=== PATIENT | male | born 1965 | race Hispanic/Latino ===

== ENCOUNTER 2024-01-10 05:45 | Day surgery (SDC) | payer MEDICARE ==
[2024-01-08 10:23] VITALS: BP 147/93; PULSE 83; RESP 18; TEMP 99.1
[2024-01-08 10:25] LABS: BASOPHILS # (AUTO) 0.02 K/uL (0.00-0.20); BASOPHILS % (AUTO) 0.2 % (0.0-5.0); EOSINOPHILS # (AUTO) 0.33 K/uL (0.00-0.70); EOSINOPHILS % (AUTO) 3.8 % (0.0-8.0); HEMATOCRIT 41.8 % (42-54); IMMATURE GRANULOCYTE ABSOLUTE 0.03 K/uL (0-1); LYMPHOCYTES # (AUTO) 1.3 K/uL (1.0-4.8); LYMPHOCYTES % (AUTO) 15.2 % (21.0-51.0); MEAN CORPUSCULAR HEMOGLOBIN 29.8 pg (27.0-33.0); MEAN CORPUSCULAR VOLUME 87.6 fL (79-99); MONOCYTES # (AUTO) 0.8 K/uL (0.1-1.0); MONOCYTES % (AUTO) 9.6 % (3.0-13.0); NEUTROPHILS # (AUTO) 6.1 K/uL (1.8-7.7); NEUTROPHILS % (AUTO) 70.9 % (40.0-77.0); PLATELET COUNT (AUTO) 225 K/uL (130-400); RED BLOOD CELL COUNT(AUTO) 4.77 MIL/uL (4.50-6.20); RED CELL DISTRIBUTION WIDTH 12.5 % (11.0-15.5); WHITE BLOOD COUNT (AUTO) 8.6 K/uL (4.8-10.8)
[2024-01-08 10:35] LABS: CREATININE 1.2 mg/dL (0.5-1.3); POTASSIUM 3.9 mmol/L (3.5-5.1)
[2024-01-08 10:38] LABS: INR 1.07 (0.85-1.15); PROTHROMBIN TIME 11.5 SEC (9.6-11.6)
[2024-01-08 10:39] LABS: PARTIAL THROMBOPLASTIN TIME 25.6 SEC (26.3-35.5)
[2024-01-08 10:53] LABS: B-TYPE NATRIURETIC PEPTIDE 7 pg/mL (0-100)
[2024-01-08 10:55] LABS: APPEARANCE,URINE CLEAR (CLEAR); BILIRUBIN,URINE NEGATIVE (NEGATIVE); COLOR,URINE YELLOW (YELLOW); GLUCOSE, URINE (UA) >=1000 mg/dL (NEGATIVE); KETONES,URINE 5 mg/dL (NEGATIVE); LEUKOCYTE ESTERASE ,URINE NEGATIVE Leu/uL (NEGATIVE); NITRATE,URINE NEGATIVE (NEGATIVE); OCCULT BLOOD,URINE NEGATIVE (NEGATIVE); PROTEIN,URINE 20 mg/dL (NEGATIVE)
[2024-01-08 10:58] LABS: ADD UA MICROSCOPIC YES
[2024-01-08 11:05] LABS: MUCUS,URINE RARE LPF (None Seen); RBC,URINE 0-1 /HPF (0-1); SQUAMOUS EPITHELIAL CELL,UR RARE /HPF (0-2); WBC,URINE 0-1 /HPF (0-1)
[2024-01-10] VITALS (18 sets, daily range): BP systolic 109–145; BP diastolic 52–94; PULSE 67–80; RESP 14–16; TEMP 97.7–98
[~2024-01-10] VITALS: Ht 175.3 cm; Wt 97.5 kg
[~2024-01-10 05:45] MED LIST: ACET-66 PO; AEC81 PO; ATOR40TA69 PO; FISH1CAP27 PO; LEVO5TAB13 PO; METF-444 PO; METO-409 PO; SERT-440 PO
[2024-01-10] MEDS: 0.9%NACL 1000ML 1,000 ML IV ONE (06:47)
[2024-01-10] MEDS ORDERED: FENTanyl CITRate PF 50 MCG/1 ML 2ML VIAL ONE (07:26)
[2024-01-10] MEDS ORDERED: MIDAZOLAM HCL 1 MG/ML 2ML VIAL ONE (07:26)
[2024-01-10] MEDS ORDERED: IOHEXOL 350 MG/ML 100ML INFUS..BTL IV ONE (07:26)
[2024-01-10] MEDS ORDERED: LIDOCAINE HCL 400MG/20ML VIAL ONE (07:26)
[2024-01-10] MEDS ORDERED: VERAPAMIL HCL 2.5 MG/ML VIAL ONE (07:26)
[2024-01-10] MEDS ORDERED: HEParin 10,000 UNIT/10ML (1,000 UNIT/ML) VIAL ONE (07:27)
[2024-01-10] MEDS ORDERED: NITROGLYCERIN 50MG VIAL ONE (07:32)
[2024-01-10] MEDS ORDERED: cloPIDOgrel 300MG TAB ONE (07:57)
[2024-01-10] MEDS ORDERED: EPTIFIBATIDE 75MG/100ML BOTTLE 100 ML IV ONE (07:57)
[2024-01-10] MEDS ORDERED: EPTIFIBATIDE 2 MG/ML 10 ML VIAL IVP ONE (07:57)
[2024-01-10] MEDS ORDERED: ASPIRIN 325MG EC TAB PO ONE (07:57)
[2024-01-10] MEDS ORDERED: IOHEXOL-350 50ML VIAL IV ONE (08:42)
[2024-01-10] MEDS ORDERED: DEXTROSE 50%-WATER 50 ML DISP.SYRIN IV PRN (09:00)
[2024-01-10] MEDS ORDERED: cloPIDOgrel 75MG TAB PO SCH (09:00)
[2024-01-10] MEDS ORDERED: GLUCAGON 1MG KIT 1 MG ML IM PRN (09:00)
[2024-01-10] MEDS: 0.9%NACL 1000ML 1,000 ML IV SCH (09:04)
[2024-01-10] MEDS ORDERED: CLOP-31 PO (09:39)
== END 2024-01-10 13:45 | disposition home or self-care (01) ==
LOC: DAH 05:45
PROVIDERS: ATTEND Student in an Organized Health Care Education/Training Program
DX: I25.118 Atherosclerotic heart disease of native coronary artery with other forms of angina pectoris (principal); R94.39 Abnormal result of other cardiovascular function study; I10 Essential (primary) hypertension; E78.2 Mixed hyperlipidemia; R07.89 Other chest pain; E11.9 Type 2 diabetes mellitus without complications; R60.0 Localized edema; Z95.5 Presence of coronary angioplasty implant and graft; Z88.6 Allergy status to analgesic agent; Z79.01 Long term (current) use of anticoagulants; Z79.82 Long term (current) use of aspirin; Z79.899 Other long term (current) drug therapy
CPT/HCPCS: 80048; 83880; 85025; 85610; 85730; 81001; 36415; 71045; 93005; 92978; 92979; 82948; 93458; C9600; C1725 ×3; C1874 ×2; C1769 ×3; C1894; A4649; C1887; C1753; Q9965 ×2; J3010; J3490 ×3; J7030; J1644; J2250; J1327 ×2; Q9967 ×2; A4215; A4222; A4221; A4663; A4216; A4606; A4223 ×3; 96360; 96361; 99156; 99157